=== PATIENT | female | born 1940 | race Caucasian/White ===

== ENCOUNTER → 2016-09-01 | Outpatient (CLI) | payer OTHER ==
[2016-09-01 13:26] LABS: BASO % 1.6 %; BASO ABS # 0.08 K/uL (0-0.2); COMPLETE YES; EOS % 5.6 %; HEMATOCRIT 36.6 % (37-47); IG% 0.6 %; LYMPH % 36.9 %; LYMPH ABS # 1.84 K/uL (1.2-3.4); MEAN CELL VOLUME 82.6 fL (80-100); MEAN CORPUSCULAR HEMOGLOBIN 27.1 pg (25-34); MEAN CORPUSCULAR HGB CONC 32.8 g/dl (32-36); NEUT % 48.3 %; PLATELET COUNT 239 K/uL (130-400); RED BLOOD COUNT 4.43 M/uL (4.2-5.4); WHITE BLOOD COUNT 4.99 K/uL (4.8-10.8)
[2016-09-01 13:31] LABS: BLOOD UREA NITROGEN 19 mg/dl (7-18); BUN/CREATININE RATIO 16.9 (10-20); CALCIUM 10.1 mg/dl (8.5-10.1); CARBON DIOXIDE 27 mmol/L (21-32); CHLORIDE 103 mmol/L (98-107); GLUCOSE 148 mg/dl (70-99); PHOSPHORUS 3.2 mg/dl (2.5-4.9); POTASSIUM 4.6 mmol/L (3.5-5.1); SODIUM 140 mmol/L (136-145)
[2016-09-01 13:35] LABS: ESTIMATED AVERAGE GLUCOSE 154 mg/dl; HA1C FLAG Normal (Normal)
== END | disposition home or self-care (01) ==
LOC: C.LABMFLN 08:35
PROVIDERS: ATTEND Family Medicine
DX: E11.9 Type 2 diabetes mellitus without complications (principal)

== ENCOUNTER → 2016-12-05 | Outpatient (CLI) | payer OTHER ==
[2016-12-05 14:11] LABS: ALT/SGPT 20 U/L (12-78); BLOOD UREA NITROGEN 20 mg/dl (7-18); CARBON DIOXIDE 27 mmol/L (21-32); CHLORIDE 104 mmol/L (98-107); CHOLESTEROL 146 mg/dl (0-200); GLUCOSE 209 mg/dl (70-99); POTASSIUM 4.7 mmol/L (3.5-5.1); SODIUM 139 mmol/L (136-145); TRIGLYCERIDES 233 mg/dl (0-150); VERY LOW DENSITY LIPOPROT CALC 47 mg/dl
[2016-12-05 14:14] LABS: ALB/GLOB RATIO 1.2 (0.9-2); ALKALINE PHOSPHATASE 73 U/L (45-117); AST/SGOT 13 U/L (15-37); CHOLESTEROL/HDL RATIO 2.7; HDL CHOLESTEROL 55 mg/dl; LDL CHOLESTEROL CALCULATED 44 mg/dl
[2016-12-05 14:17] LABS: CALCIUM 10.1 mg/dl (8.5-10.1); ESTIMATED AVERAGE GLUCOSE 151 mg/dl; HA1C FLAG Normal (Normal)
== END | disposition home or self-care (01) ==
LOC: C.LABMFLN 11:55
PROVIDERS: ATTEND Family Medicine
DX: E11.9 Type 2 diabetes mellitus without complications (principal); E78.5 Hyperlipidemia, unspecified

== ENCOUNTER → 2017-03-08 | Outpatient (CLI) | payer OTHER ==
[2017-03-08 14:35] LABS: BLOOD UREA NITROGEN 19 mg/dl (7-18); BUN/CREATININE RATIO 16.1 (10-20); CALCIUM 9.9 mg/dl (8.5-10.1); CARBON DIOXIDE 29 mmol/L (21-32); CHLORIDE 103 mmol/L (98-107); GLUCOSE 166 mg/dl (70-99); POTASSIUM 4.8 mmol/L (3.5-5.1); SODIUM 139 mmol/L (136-145)
[2017-03-08 14:36] LABS: PHOSPHORUS 3.7 mg/dl (2.5-4.9)
[2017-03-09 08:11] LABS: ESTIMATED AVERAGE GLUCOSE 148 mg/dl; HA1C FLAG Normal (Normal)
== END | disposition home or self-care (01) ==
LOC: C.LABMFLN 10:42
PROVIDERS: ATTEND Family Medicine
DX: E11.9 Type 2 diabetes mellitus without complications (principal)

== ENCOUNTER → 2017-06-20 | Outpatient (CLI) | payer OTHER ==
[2017-06-20 18:00] LABS: BASO % 0.9 %; BASO ABS # 0.05 K/uL (0-0.2); COMPLETE YES; EOS % 3.3 %; HEMATOCRIT 35.9 % (37-47); IG% 0.3 %; LYMPH % 32.3 %; LYMPH ABS # 1.85 K/uL (1.2-3.4); MEAN CELL VOLUME 86.1 fL (80-100); MEAN CORPUSCULAR HEMOGLOBIN 26.6 pg (25-34); MEAN CORPUSCULAR HGB CONC 30.9 g/dl (32-36); MONO % 8.4 %; NEUT % 54.8 %; PLATELET COUNT 238 K/uL (130-400); RED BLOOD COUNT 4.17 M/uL (4.2-5.4); WHITE BLOOD COUNT 5.72 K/uL (4.8-10.8)
[2017-06-20 18:14] LABS: BLOOD UREA NITROGEN 21 mg/dl (7-18); CARBON DIOXIDE 29 mmol/L (21-32); CHLORIDE 105 mmol/L (98-107); CREATININE 1.02 mg/dl (0.60-1.20); GLUCOSE 102 mg/dl (70-99); POTASSIUM 4.9 mmol/L (3.5-5.1); SODIUM 139 mmol/L (136-145)
[2017-06-21 06:29] LABS: ESTIMATED AVERAGE GLUCOSE 154 mg/dl; HA1C FLAG Normal (Normal)
== END | disposition home or self-care (01) ==
LOC: C.LABMFLN 10:53
PROVIDERS: ATTEND Family Medicine
DX: E11.9 Type 2 diabetes mellitus without complications (principal)

== ENCOUNTER → 2017-09-20 | Outpatient (CLI) | payer OTHER ==
[2017-09-20 12:56] LABS: BASO % 0.8 %; BASO ABS # 0.05 K/uL (0-0.2); EOS % 3.8 %; EOS ABS # 0.25 K/uL (0-0.5); HEMATOCRIT 38.7 % (37-47); HEMOGLOBIN 12.6 g/dL (12.0-16.0); IG# 0.02 K/uL (0.00-0.02); LYMPH % 29.9 %; LYMPH ABS # 1.95 K/uL (1.2-3.4); MEAN CELL VOLUME 85.4 fL (80-100); MEAN CORPUSCULAR HEMOGLOBIN 27.8 pg (25-34); MEAN CORPUSCULAR HGB CONC 32.6 g/dl (32-36); MEAN PLATELET VOLUME 9.1 fL (7.4-10.4); MONO % 6.9 %; MONO ABS # 0.45 K/uL (0.11-0.59); NEUT % 58.3 %; NEUT ABS # 3.81 K/uL (1.4-6.5); PLATELET COUNT 282 K/uL (130-400); RED CELL DISTRIBUTION WIDTH CV 14.3 % (11.5-14.5); RED CELL DISTRIBUTION WIDTH SD 44.6 fL (36.4-46.3); WHITE BLOOD COUNT 6.53 K/uL (4.8-10.8)
[2017-09-20 13:32] LABS: HEMOGLOBIN A1C 6.7 % (4.5-5.6)
[2017-09-20 14:03] LABS: ALBUMIN 3.6 gm/dl (3.4-5.0); BLOOD UREA NITROGEN 18 mg/dl (7-18); CALCIUM 11.6 mg/dl (8.5-10.1); CARBON DIOXIDE 28 mmol/L (21-32); CREATININE 1.17 mg/dl (0.60-1.20); GLUCOSE 197 mg/dl (70-99); PHOSPHORUS 1.6 mg/dl (2.5-4.9); SODIUM 136 mmol/L (136-145)
== END | disposition home or self-care (01) ==
LOC: C.LABMFLN 09:42
PROVIDERS: ATTEND Family Medicine
DX: E11.9 Type 2 diabetes mellitus without complications (principal); R82.90 Unspecified abnormal findings in urine; D64.9 Anemia, unspecified

== ENCOUNTER → 2017-09-27 | Outpatient (CLI) | payer OTHER ==
[2017-09-27 18:15] LABS: ALBUMIN 3.5 gm/dl (3.4-5.0); BLOOD UREA NITROGEN 21 mg/dl (7-18); CALCIUM 10.5 mg/dl (8.5-10.1); CARBON DIOXIDE 25 mmol/L (21-32); GLUCOSE 121 mg/dl (70-99); POTASSIUM 3.9 mmol/L (3.5-5.1); SODIUM 139 mmol/L (136-145)
[2017-09-27 18:16] LABS: PHOSPHORUS 2.5 mg/dl (2.5-4.9)
== END | disposition home or self-care (01) ==
LOC: C.LABMFLN 14:27
PROVIDERS: ATTEND Family Medicine
DX: E83.52 Hypercalcemia (principal)

== ENCOUNTER → 2017-11-02 | Outpatient (CLI) | payer OTHER | END | disposition home or self-care (01) | LOC: C.LABMFLN 11:49 | PROVIDERS: ATTEND Internal Medicine Nephrology | DX: E83.52 Hypercalcemia (principal); N18.3 Chronic kidney disease, stage 3 (moderate); E55.9 Vitamin D deficiency, unspecified ==

== ENCOUNTER → 2017-11-08 | Outpatient (CLI) | payer OTHER | END | disposition home or self-care (01) | LOC: C.LABMFLN 10:57 | PROVIDERS: ATTEND Family Medicine | DX: R19.7 Diarrhea, unspecified (principal) ==

== ENCOUNTER → 2017-12-07 | Outpatient (CLI) | payer OTHER ==
[2017-12-07 18:08] LABS: ALBUMIN 3.5 gm/dl (3.4-5.0); BLOOD UREA NITROGEN 20 mg/dl (7-18); CALCIUM 9.6 mg/dl (8.5-10.1); CARBON DIOXIDE 29 mmol/L (21-32); CREATININE 1.15 mg/dl (0.60-1.20); GLUCOSE 133 mg/dl (70-99); PHOSPHORUS 3.6 mg/dl (2.5-4.9); POTASSIUM 4.6 mmol/L (3.5-5.1); SODIUM 139 mmol/L (136-145)
== END | disposition home or self-care (01) ==
LOC: C.LABMFLN 11:01
PROVIDERS: ATTEND Internal Medicine Nephrology
DX: E83.52 Hypercalcemia (principal)

== ENCOUNTER → 2018-01-01 | Outpatient (CLI) | payer OTHER ==
[2018-01-01 13:27] LABS: HEMOGLOBIN A1C 6.9 % (4.5-5.6)
== END | disposition home or self-care (01) ==
LOC: C.LABMFLN 10:38
PROVIDERS: ATTEND Family Medicine
DX: R30.0 Dysuria (principal); R35.0 Frequency of micturition; E11.9 Type 2 diabetes mellitus without complications; Z86.2 Personal history of diseases of the blood and blood-forming organs and certain disorders involving the immune mechanism; E78.5 Hyperlipidemia, unspecified

== ENCOUNTER 2019-07-23 07:45 | Inpatient (IN) ==
--- NOTE | 2019-06-23 15:56 | PAT Medication Instructions ---
Medication Instructions Date of Service June 23, 2019 Home Medications Medication Instructions Recorded glipizide 5 mg tablet 5 mg PO .COMPLEX #270 tab 02/10/19 blood sugar diagnostic strips #300 ea 02/12/19 atorvastatin 40 mg tablet 40 mg PO QPM #90 tab 03/17/19 insulin glargine (U-100) 100 See Rx Instructions SUBCUT 03/17/19 unit/mL (3 mL) subcutaneous pen .COMPLEX #15 syr tramadol 50 mg tablet 50 mg PO QID PRN #60 tab 05/15/19 Microlet lancets #200 ea 06/16/19 glipizide 5 mg tablet 5 mg PO .COMPLEX #270 tab 02/10/19 [Rx Confirmed 06/17/19] atorvastatin 40 mg tablet 40 mg PO QPM #90 tab 03/17/19 [Rx Confirmed 06/17/19] cranberry 300 mg PO DAILY 03/17/19 [History Confirmed 06/17/19] insulin glargine (U-100) 100 unit/mL (3 mL) subcutaneous pen See Rx Instructions magnesium 250 mg tablet 250 mg PO BID 03/17/19 [History Confirmed 06/17/19] multivitamin tablet 1 tab PO QAM 03/17/19 [History Confirmed 06/17/19] coenzyme Q10 100 mg capsule 200 mg PO DAILY cap 03/20/19 [History Confirmed 06/17/19] cyanocobalamin (vit B-12) 2,500 mcg sublingual tablet 2,500 mcg SL DAILY tramadol 50 mg tablet 50 mg PO QID PRN ascorbic acid (vitamin C) [Vitamin C] 500 mg PO DAILY 06/17/19 [History Confirmed 06/17/19] carboxymethylcellulose sodium [Artificial Tears (cmc)] 1 drp OPHTHALMIC (EYE) BID PRN cetirizine [Zyrtec] 10 mg PO DAILY PRN gabapentin 200 mg PO HS 06/17/19 [History Confirmed 06/17/19] latanoprost 1 drp OPB PM 06/17/19 [History Confirmed 06/17/19] losartan 50 mg PO QPM 06/17/19 [History Confirmed 06/17/19] omeprazole 40 mg PO DAILY psyllium husk [Metamucil] 1 tsp PO QPM 06/17/19 [History Confirmed 06/17/19] vit C,Q-Th-upumq-lutein-zeaxan [PreserVision AREDS-2] 1 tab PO BID STOP taking 2 weeks before surgery (or as soon as possible if surgery is within 2 weeks) cranberry 300 mg PO DAILY 03/17/19 [History Confirmed 06/17/19] coenzyme Q10 100 mg capsule 200 mg PO DAILY cap 03/20/19 [History Confirmed 06/17/19] vit C,I-Vz-sgqij-lutein-zeaxan [PreserVision AREDS-2] 1 tab PO BID DO NOT take the morning of surgery glipizide 5 mg tablet 5 mg PO .COMPLEX #270 tab 02/10/19 [Rx Confirmed 06/17/19] magnesium 250 mg tablet 250 mg PO BID 03/17/19 [History Confirmed 06/17/19] multivitamin tablet 1 tab PO QAM 03/17/19 [History Confirmed 06/17/19] cyanocobalamin (vit B-12) 2,500 mcg sublingual tablet 2,500 mcg SL DAILY ascorbic acid (vitamin C) [Vitamin C] 500 mg PO DAILY 06/17/19 [History Confirmed 06/17/19] cetirizine [Zyrtec] 10 mg PO DAILY PRN Take morning of surgery With a small sip of water, OTHERWISE NOTHING TO EAT OR DRINK AFTER MIDNIGHT: tramadol 50 mg tablet 50 mg PO QID PRN (okay to take up to 4 hours prior to surgery if needed) carboxymethylcellulose sodium [Artificial Tears (cmc)] 1 drp OPHTHALMIC (EYE) BID PRN (if needed) cetirizine [Zyrtec] 10 mg PO DAILY PRN (if needed) omeprazole 40 mg PO DAILY Take evening before surgery glipizide 5 mg tablet 5 mg PO .COMPLEX #270 tab 02/10/19 [Rx Confirmed 06/17/19] atorvastatin 40 mg tablet 40 mg PO QPM #90 tab 03/17/19 [Rx Confirmed 06/17/19] insulin glargine (U-100) 100 unit/mL (3 mL) subcutaneous pen See Rx Instructions magnesium 250 mg tablet 250 mg PO BID 03/17/19 [History Confirmed 06/17/19] tramadol 50 mg tablet 50 mg PO QID PRN (if needed) carboxymethylcellulose sodium [Artificial Tears (cmc)] 1 drp OPHTHALMIC (EYE) BID PRN (if needed) cetirizine [Zyrtec] 10 mg PO DAILY PRN (if needed) gabapentin 200 mg PO HS 06/17/19 [History Confirmed 06/17/19] latanoprost 1 drp OPB PM 06/17/19 [History Confirmed 06/17/19] losartan 50 mg PO QPM 06/17/19 [History Confirmed 06/17/19] psyllium husk [Metamucil] 1 tsp PO QPM 06/17/19 [History Confirmed 06/17/19] Insulin Dependent Diabetic Patients * Test your blood sugar the morning of surgery * If Blood Sugar is GREATER THAN 150, take HALF of your regular dose of: insulin glargine (U-100) 100 unit/mL (3 mL) subcutaneous pen (take 12.5 units) * If Blood Sugar is LESS THAN 150, DO NOT TAKE ANY: insulin glargine (U-100) 100 unit/mL (3 mL) subcutaneous pen Other Notes If you have any questions please call us at [phone] or [phone] or [phone] or [phone]
--- NOTE | 2019-06-24 12:49 | Anesthesiology Consultation ---
Date of Service June 24, 2019 Assessment & Plan (1) Encounter for pre-operative examination: - Awaiting review preop testing (labs, EKG, CXR). - Awaiting surgeon-ordered PCP preop evaluation scheduled 07/01 ([facility]). - Check BSG AM DOS Chart Review Chart Review: Patient seen in Pre Admission Testing Teaching & Discussion Pre-Anesthesia Teaching/Discussion Notes: Instructed NPO after midnight before surgery,except medications with 15 cc of water. Medication instructions provided according to the PAT guidelines. History Surgery Operation Date: 07/23/19 09:10 Proposed Procedures p Right Total Knee Arthroplasty - Navdeep Natarajan MD Height/Weight Height: 5 ft 4 in Weight: 91.9 kg Allergies Allergy/AdvReac Type Severity Reaction Status Date / Time Penicillins Allergy Intermediate HIVES Verified 06/17/19 13:23 hydrocodone Allergy Mild LIPS Verified 06/24/19 12:54 SWELLING CONTRASTMEDIA Allergy Intermediate IODINE DYE Uncoded 06/17/19 13:23 SWELLING Medications Home Medications Medication Instructions Recorded Confirmed Last Taken glipizide 5 mg tablet 5 mg PO .COMPLEX #270 tab 02/10/19 06/17/19 Unknown blood sugar diagnostic #300 ea 02/12/19 03/24/19 Unknown atorvastatin 40 mg tablet 40 mg PO QPM #90 tab 03/17/19 06/17/19 Unknown cranberry 300 mg PO DAILY 03/17/19 06/17/19 Unknown insulin glargine 100 unit/mL (3 See Rx Instructions SUBCUT 03/17/19 06/17/19 U nknown mL) subcutaneous pen .COMPLEX #15 syr magnesium 250 mg tablet 250 mg PO BID 03/17/19 06/17/19 Unknown multivitamin 1 tab PO QAM 03/17/19 06/17/19 Unknown coenzyme Q10 100 mg capsule 200 mg PO DAILY cap 03/20/19 06/17/19 Unknown cyanocobalamin (vitamin B-12) 2,500 mcg SL DAILY tab 03/20/19 06/17/19 Unknown 2,500 mcg sublingual tablet tramadol 50 mg tablet 50 mg PO QID PRN #60 tab 05/15/19 06/17/19 Unknown lancets #200 ea 06/16/19 Unknown ascorbic acid (vitamin C) [Vitamin 500 mg PO DAILY 06/17/19 06/17/19 Unknown C] carboxymethylcellulose sodium 1 drp OPHTHALMIC (EYE) BID PRN 06/17/19 06/17/19 Unknown [Artificial Tears (cmc)] cetirizine [Zyrtec] 10 mg PO DAILY PRN 06/17/19 06/17/19 Unknown gabapentin 200 mg PO HS 06/17/19 06/17/19 Unknown latanoprost 1 drp OPB PM 06/17/19 06/17/19 Unknown losartan 50 mg PO QPM 06/17/19 06/17/19 Unknown omeprazole 40 mg PO DAILY PRN 06/17/19 06/17/19 Unknown psyllium husk [Metamucil] 1 tsp PO QPM 06/17/19 06/17/19 Unknown vit C,V-Nv-odkke-lutein-zeaxan 1 tab PO BID 06/17/19 06/17/19 Unknown [PreserVision AREDS-2] Past Medical History Medical History (Updated 06/24/19 @ 13:04 by Kathie Guadarrama) Asthma childhood CKD (chronic kidney disease), stage III Colon cancer colon polyp + for cancer/no chemo or XRT Degenerative disc disease Diabetes mellitus, type 2 IDDM Diabetic peripheral neuropathy Dry eye syndrome Esophageal reflux controlled Esophageal stricture s/p dilation Glaucoma Hiatal hernia History of diverticulitis s/p colon resection Hyperlipidemia Macular degeneration Obesity Osteoarthritis Solitary pulmonary nodule under surveillance Squamous cell carcinoma of scalp Exercise / Class Metabolic Activity III < 4 Walking/Shop/Light housework Past Family History Family History Sister Family history of diabetes mellitus Family hx of colon cancer Father Family hx of colon cancer Past Surgical History Surgical History (Updated 06/24/19 @ 12:56 by Ktahie Guadarrama) H/O total hysterectomy History of appendectomy History of arthroscopy LEFT KNEE History of esophagogastroduodenoscopy (EGD) History of tonsillectomy and adenoidectomy History of tooth extraction History of total knee replacement LEFT S/P cholecystectomy S/P colon resection S/P colonoscopy Past Anesthesia History No Hx of Anesthesia Complications and No Family Hx of Anesthesia Complications History of PONV No Hx of PONV and No Hx of Motion Sickness Social History Smoking Status: Former smoker tobacco type: cigarettes Do You Dip or Chew Tobacco: No Smoking End Date: 1976 Hx Alcohol Use: Yes Alcohol type: wine alcohol intake frequency: holidays/special occasions only Hx Substance Use: No substance use type: does not use Review of Systems Reflux controlled. Patient denies chest pain, shortness of breath, cough, wheezing, palpitations. Physical Exam Vital Signs VITALS BP 134/82 P 95 TEMP 98.8 SP02 93%RA RESP 16 PHYSICAL Full neck and c-spine range of motion. Full TMJ range of motion. TMD 3 finger breaths Mallampati Score 3 Dentition: upper full denture Lungs: clear throughout to auscultation Cardiac: regular rate and rhythm, no murmurs noted Spine: normal Carotid arteries: negative bruit Extremities: no edema
--- NOTE | 2019-06-24 13:48 | XRay Report ---
XR chest Pre-admission PA/Lat CLINICAL HISTORY: Preoperative chest COMPARISON STUDY: No previous studies for comparison. FINDINGS: The cardiac and mediastinal contours are normal. There is no evidence of focal pulmonary co nsolidation. There is no evidence of failure. No pleural effusions are visualized.[There is a promine nt left cardiophrenic angle fat pad. Degenerative changes are present within the dorsal spine. IMPRESSION: No active disease in the chest. Electronically signed by: Bradley Cota M.D. 06/24/2019 1:46 PM
[2019-06-24 14:25] LABS: Albumin Level 3.4 gm/dl (3.4-5.0); BUN Creatinine Ratio 17.9 (10-20); Calcium 10.4 mg/dl (8.5-10.1); Creatinine Clr Calc Pharmacy 40.7 ml/min; Est GFR (African American) 48.9; Est GFR (Non-African American) 42.2; Potassium 4.6 mmol/L (3.5-5.1)
[2019-06-24 14:31] LABS: Partial Thromboplastin Ratio 0.9; Partial Thromboplastin Time 24.7 Seconds (21.0-31.0); Prothrombin Time 9.8 Seconds (9.0-12.0)
[2019-06-24 14:33] LABS: Basophils # (auto) 0.06 K/uL (0-0.2); Eosinophils # (auto) 0.14 K/uL (0-0.5); Eosinophils % (auto) 2.3 %; Hematocrit (blood only) 36.9 % (37-47); Immature Granulocytes # (auto) 0.04 K/uL (0.00-0.02); Immature Granulocytes % (auto) 0.6 %; Lymphocytes # (auto) 1.67 K/uL (1.2-3.4); Lymphocytes % (auto) 26.9 %; Mean Corpuscular Hemoglobin 28.2 pg (25-34); Mean Corpuscular Hgb Conc 32.5 g/dL (32-36); Mean Corpuscular Volume 86.6 fL (80-100); Mean Platelet Volume 8.5 fL (7.4-10.4); Monocytes # (auto) 0.45 K/uL (0.11-0.59); Monocytes % (auto) 7.3 %; Neutrophils # (auto) 3.84 K/uL (1.4-6.5); Neutrophils % (auto) 61.9 %; Platelet Count 249 K/uL (130-400); RDW Coefficient of Variation 14.3 % (11.5-14.5); RDW Standard Deviation 44.8 fL (36.4-46.3); Red Blood Count 4.26 M/uL (4.2-5.4)
[2019-06-24 14:58] LABS: Estimated Average Glucose 169 mg/dl; Hemoglobin A1C 7.5 % (4.5-5.6)
--- NOTE | 2019-07-22 19:36 | History and Physical Report ---
DATE OF ADMISSION: 07/23/2019 CHIEF COMPLAINT: Chronic right knee pain. HISTORY OF PRESENT ILLNESS: This is an 78-year-old female patient of Dr. Natarajan'joy complaining of chronic right knee pain and instability, longstanding, now progressively getting worse. The patient has failed conservative treatment including intraarticular injections, tramadol, anti-inflammatories, use of a wrap and a brace. The patient has increased pain with weightbearing activities and her pain does interfere with her activities of daily living. The patient has been diagnosed with end-stage osteoarthritis per clinical and radiographic exams. The patient wished to proceed with a right total knee arthroplasty. PAST MEDICAL HISTORY: Hypertension, hypercholesterolemia, peripheral neuropathy, diabetes mellitus with insulin, osteoarthritis, acid reflux, hiatal hernia, obesity, kidney stones and a history of cancer, unspecified. SOCIAL HISTORY: Nonsmoker, nondrinker. PAST SURGICAL HISTORY: Left total knee arthroplasty, tonsillectomy, cholecystectomy, hysterectomy, foot surgery, colon resection, kidney stone removal, cataracts, carpal tunnel. ALLERGIES: PENICILLIN WHICH CAUSES HIVES; VICODIN, WHICH CAUSES LIPS SWELLING AND IV DYE, WHICH CAUSES LIPS SWELLING. REVIEW OF SYSTEMS: The patient complains of chronic right knee pain and instability. Otherwise, denies any shortness of breath, chest pain, nausea, vomiting or other joint complaints. FAMILY HISTORY: Noncontributory. MEDICATIONS: 1. Glipizide 5 mg 3 times daily. 2. Lantus insulin 25 units in the a.m., 18 units in the p.m. 3. Atorvastatin 40 mg daily. 4. Losartan 50 mg daily. 5. Tramadol 50 mg twice daily. 6. Omeprazole 20 mg daily. 7. Latanoprost eye drops 0.005% to the affected eye daily as needed. 8. Vitamin B12. 9. CoQ10 10. Vitamin C. 11. PreserVision. 12. Magnesium oxide. 13. Metamucil. 14. Artificial tears. 15. Zyrtec 10 mg daily. 16. Cranberry daily. 17. Biotin daily. PHYSICAL EXAMINATION: GENERAL: Well-developed, well-nourished 78-year-old female in no acute distress. She is alert and oriented x3 and pleasant. HEENT: Normocephalic, atraumatic. Extraocular motions are intact. Pupils are equal and reactive to light. HEART: Regular rate and rhythm, no murmurs. LUNGS: Clear. ABDOMEN: Soft, nontender, bowel sounds present. EXTREMITIES: Right knee limited range of motion of 0-115, valgus, lateral joint line tenderness, crepitation, 5/5 strength. Neurologically and neurovascularly, she is intact in her right lower extremity. DIAGNOSES: Right knee end-stage osteoarthritis, hypertension, hypercholesterolemia, peripheral neuropathy, diabetes mellitus with insulin, osteoarthritis, sciatica, acid reflux, hiatal hernia, obesity, kidney stones, history of unspecified cancer. PLAN: The patient was advised of her diagnosis. Indications, risks, benefits, postop course have all been reviewed. The patient wishes to proceed with a right total knee arthroplasty. Necessary consent forms, preoperative testing and clearances will be obtained.
[~2019-07-23 07:45] MED LIST: ACETAMINOPHEN 500 MG TAB PO SCH; CeleBREX 200 MG CAP PO SCH; FAMOTIDINE 20 MG TAB PO SCH; GABAPENTIN 300 MG CAP PO SCH; METOCLOPRAMIDE HCL 10 MG TABLET PO SCH; ROPIVACAINE 0.5% HCL/PF 150 MG, BUPIVACAINE 0.5% MPF 30 ML, EPINEPHrine 30MG/30ML (OR U... INFIL SCH; TRANEXAMIC ACID 1,000 MG **IV Intra-op IV SCH; TRANEXAMIC ACID 1,000 MG **IV Pre-op IV SCH; VANCOMYCIN HCL 1,500 MG in SODIUM CHLORIDE 0.9% 500 ML IV SCH; dexAMETHasone 4 MG TAB PO SCH
[2019-07-23] MEDS ORDERED: BUPIVACAINE 0.5 % 5 MG/1 ML PF 10ML VIAL ONE (07:57)
[2019-07-23] MEDS ORDERED: ROPIVACAINE 0.5% 5 MG/ML 30 ML VIAL ONE (07:58)
[2019-07-23] MEDS ORDERED: EPINEPHrine INJ 1 MG/ML AMP ONE (07:58)
--- NOTE | 2019-07-23 08:51 | History & Physical Bridge Note ---
Date of Service July 23, 2019 History & Physical Bridge Note I have examined the patient, reviewed the History & Physical and in the interval since the performance of the History & Physical I have noted the following changes of clinical significance: no changes noted
[2019-07-23] MEDS ORDERED: ORTHO JOINT ANESTHETIC ONE (09:08)
[2019-07-23] MEDS ORDERED: BACITRACIN INJ 50,000 UNIT VIAL ONE (09:08)
[2019-07-23] MEDS ORDERED: fentaNYL citrate 100 MCG/2 ML VIAL ONE (10:03)
[2019-07-23] MEDS ORDERED: MIDAZOLAM HCL 1 MG/ML 2ML VIAL ONE (10:03)
[2019-07-23] MEDS ORDERED: LABETALOL HCL IV 5 MG/ML 20ML IV PRN (10:10)
[2019-07-23] MEDS ORDERED: ePHEDrine sulfate 50 MG/ML AMP IV PRN (10:10)
[2019-07-23] MEDS ORDERED: fentaNYL citrate 100 MCG/2 ML VIAL IV PRN (10:10)
[2019-07-23] MEDS ORDERED: MEPERIDINE HCL 25 MG/ML CARP IV PRN (10:10)
[2019-07-23] MEDS ORDERED: ATROPINE SULFATE 0.1 MG/ML 10ML SYR IV PRN (10:10)
[2019-07-23] MEDS ORDERED: ONDANSETRON INJ 2 MG/ML 2 ML VIAL IV PRN ×2 (10:10→14:23)
[2019-07-23] MEDS ORDERED: PHENYLEPHRINE 100MCG/ML 5ML SYR IV PRN (10:10)
[2019-07-23] MEDS ORDERED: LACTATED RINGER'S 1,000 ML IV SCH (10:53)
[2019-07-23] MEDS ORDERED: PROPOFOL IV EMULSION 10 MG/ML 20 ML VIAL IV ONE ×2 (11:47)
--- NOTE | 2019-07-23 12:37 | Post Operative Brief Note ---
Immediate Post Op Note v1 Date of Surgery July 23, 2019 Pre & Post Diagnosis Operation Date: 07/23/19 10:40 Pre-Op Diagnosis: RIGHT KNEE OSTEOARTHRITIS Post-Op Diagnosis: RIGHT KNEE OSTEOARTHRITIS I identified the patient and participated in the time-out.: Yes Procedure Operation Date: 07/23/19 10:40 Actual Procedures p Right Total Knee Arthroplasty - Navdeep Natarajan MD Surgeon Navdeep Natarajan MD Derrick Follower GISSELL Chin Estimated Blood Loss 5 Findings Consistent with Post-Op Diagnosis Specimens Bone cuts Drains Hemovac Drain Anesthesia Type MAC Spinal Regional Complications none Disposition Accompanied Patient To Recovery: No Disposition: Recovery Room Overlapping Procedure I was present for: the critical portions of procedure. Back up surgeon: was not required during procedure.
[2019-07-23] MEDS ORDERED: ONDANSETRON INJ 2 MG/ML 2 ML VIAL ONE (13:07)
--- NOTE | 2019-07-23 13:48 | Anesthesiology Progress Note ---
Date of Service July 23, 2019 Anesthesia Post Procedure Vital Signs Vital Signs: Temp Pulse Pulse Resp BP Pulse Ox 07/23/19 13:40 74 13 121/66 99 07/23/19 13:30 74 14 124/64 99 07/23/19 13:20 81 14 131/64 100 07/23/19 13:11 36.4 C L 93 H 17 111/61 100 07/23/19 08:20 37 C 92 H 18 145/80 H 97 Transfer of Care Handoff Completed per policy Notes Mental Status: alert / awake / arousable Patient Amnestic to Procedure: Yes Nausea / Vomiting: adequately controlled Pain: adequately controlled Airway Patency, RR, SpO2: stable & adequate BP & HR: stable & adequate Hydration State: stable & adequate Neuraxial Anesthesia: was administered and sensory block is resolving Anesthetic Complications: no major complications apparent and Pt Satisfied with anesthetic care
--- NOTE | 2019-07-23 14:15 | XRay Report ---
XR knee RT 1 or 2V routine CLINICAL HISTORY: Surgical Post Op COMPARISON: None. DISCUSSION: There are postsurgical changes of a total right knee arthroplasty and patellar resurfacin g. The views are slightly obliqued. The femoral and tibial components appear well seated as visualize d. There are overlying skin gerardo and surgical drains. There is air in the soft tissues consistent with recent surgery. IMPRESSION: Postsurgical changes of a total right knee arthroplasty. Electronically signed by: Bradley Cota M.D. 07/23/2019 2:13 PM
[2019-07-23] MEDS ORDERED: ARTIFICIAL TEARS OP OINT 3.5 GM TUBE OP PRN (14:23)
[2019-07-23] MEDS ORDERED: VANCOMYCIN HCL 1,250 MG in SODIUM CHLORIDE 0.9% 250 ML IV SCH (14:23)
[2019-07-23] MEDS ORDERED: PANTOprazole 40 MG TAB PO PRN (14:23)
[2019-07-23] MEDS ORDERED: CETIRIZINE HCL 10 MG TABLET PO PRN (14:23)
[2019-07-23] MEDS ORDERED: NALOXONE HCL 0.4 MG/1 ML VIAL/CARP IV PRN (14:23)
[2019-07-23] MEDS ORDERED: VANCOMYCIN CONSULT ACTIVE PRN (14:23)
[2019-07-23] MEDS ORDERED: MAGNESIUM HYDROXIDE SUSP 30 ML UDC PO PRN (14:23)
[2019-07-23] MEDS ORDERED: bisacodyL 10 MG SUPP PR PRN (14:23)
[2019-07-23] MEDS ORDERED: HYDROmorphone INJ 0.5 MG/0.5 ML SYR IV PRN (14:23)
[2019-07-23] MEDS ORDERED: PHARMACY GLYCEMIC MGMT CONSULT PRN (14:41)
[2019-07-23] MEDS: SODIUM CHLORIDE 0.9% 1000ML 1,000 ML IV SCH (14:51)
--- NOTE | 2019-07-23 15:23 | Pharmacy Report ---
Glycemic Control Consultation - Date of Service July 23, 2019 - Scope Scope: Glycemic Pharmacist consulted by Bryce Velazquez PA-C on 07/23/19 for glycemic control and to write orders per formerly [facility] inpatient glycemic control protocol - Objective Weight: 88.451 kg Accuchecks BSG (last 24hrs): 07/23/19 07/23/19 08:19 13:21 POC Glucose 126 H 141 H HbA1c: Hemoglobin A1c 7.5 % (4.5-5.6) H 06/24/19 13:05 - Recent Pertinent Medications Outpatient Anti-diabetic Regimen: * Glipizide 10 mg PO QAM , 5 mg PO QPM * Lantus 25 units SQ QAM, 18 units SQ QPM (patient took dose last night) * A1c = 7.5 % on 06/24/19 Risk Factors for Insulin Resistance: * Steroids: Dexamethasone 8 mg PO preop x 1 dose * Infection: Vancomycin IV x 1 dose postop * IVF: NS @ 100 ml/hr * Recent Surgery: R TKA - POD #1 * Diet: T2DM - Assessment & Plan Assessment & Plan: ASSESSMENT: * 78 F with T2DM admitted for R TKA today. 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 * Oral agents are not recommended for inpatient use d/t drug interactions, changing PO intake, and difficulty titrating for acute hyper/hypoglycemia. * Will hold oral agents for admission and utilize SQ basal bolus insulin regimen which is the recommended regimen for inpatient glycemic control. Will initiate weight based insulin dosing and titrate based on BSG trends. * Spoke to patient today. She said her last dose of Lantus was 18 units last night at 7 pm. * She received Dexamethasone 8 mg PO preop x1 today in the OR. Steroids are known to cause hyperglycemia. * Lantus dose for now ordered based on skipped morning dose + slightly extra to cover for the steroid hyperglycemia. Also ordered HS Lantus based on scale in case of persistent hyperglycemia. * Novolog with meals ordered based on wt and stress factor of 3 since steroid dose was given this AM. PLAN FOR INPATIENT GLYCEMIC CONTROL: * Holding outpatient oral diabetes medications * Basal insulin * Lantus 30 units SQ at 1530 * Lantus HS based on scale as follows: - if BSG less than 160 - give 0 units - if BSG 160 or above - give 8 units * Bolus insulin * NovoLog per scale ACHS or Q6hrs while NPO + with 00 & 04 checks. * Goal Range: Low 120 mg/dL - High 150 mg/dL * Correction Factor: 20 mg/dL/unit * Nutritional / Prandial insulin per carb ratio of 1 unit per 7 grams CHO consumed * Please note that the plan above was derived based on current level of insulin resistance and hospital stress. These recommendations are appropriate for inpatient admission only. Plan of care upon discharge will need to be reassessed to avoid potential outpatient hypo/hyperglycemia. Thank you.
[2019-07-23] MEDS ORDERED: INSULIN GLARGINE SOLOSTAR 100 UNITS/ML 3 ML PEN SC ONE ×2 (15:30→21:00)
--- NOTE | 2019-07-23 15:44 | Hospitalist Consultation ---
Date of Consultation July 23, 2019 Assessment & Plan (1) Post-operative state: s/p right TKA 07/23 monitor for acute blood loss Pain control, dvt proph per primary (2) Hyperlipidemia: continue atorvastatin (3) Diabetes mellitus: type II consult glycemic pharmacist (4) Diabetic peripheral neuropathy: continue home gabapentin (5) CKD (chronic kidney disease), stage III: avoid nephrotoxins where possible (6) Benign essential hypertension: hold losartan post op day 1 to avoid hypotension prp am Supervising Physician Co-Signing Physician Notes I supervised Shital Mullins NP on this patient's care. I examined the patient today independently of her. I discussed the plan of care with her with the plan being as written in her note except for any following changes/exceptions: None. History of Present Illness Attending Physician: Navdeep Natarajan MD History of Present Illness Ms. Acevedo is post total knee today. She has no complaints, denies sob, chest pain, nausea, vomiting or pain at the surgical site. Pmhx: htn, hld, neuropathy, DMII, GERD Social: smoked for 20 years 1.5 ppd and quit 42 years ago, very occasional alcohol, Family: non contributory Allergies Allergy/AdvReac Type Severity Reaction Status Date / Time Iodinated Contrast Media Allergy Intermediate Swelling Verified 07/23/19 08:28 Penicillins Allergy Intermediate HIVES Verified 07/23/19 08:28 hydrocodone Allergy Mild LIPS Verified 07/23/19 08:28 SWELLING Home Medications Home Medications Medication Instructions Recorded Confirmed Type glipizide 5 mg tablet 5 mg PO .COMPLEX #270 tab 02/10/19 07/23/19 Rx blood sugar diagnostic #300 ea 02/12/19 07/23/19 Rx atorvastatin 40 mg tablet 40 mg PO QPM #90 tab 03/17/19 07/23/19 Rx cranberry 300 mg PO DAILY 03/17/19 07/23/19 History insulin glargine 100 unit/mL (3 See Rx Instructions SUBCUT 03/17/19 07/23/19 Rx mL) subcutaneous pen .COMPLEX #15 syr magnesium 250 mg tablet 250 mg PO BID 03/17/19 07/23/19 History multivitamin 1 tab PO QAM 03/17/19 07/23/19 History coenzyme Q10 100 mg capsule 200 mg PO DAILY cap 03/20/19 07/23/19 History cyanocobalamin (vitamin B-12) 2,500 mcg SL DAILY tab 03/20/19 07/23/19 History 2,500 mcg sublingual tablet lancets #200 ea 06/16/19 07/23/19 Rx ascorbic acid (vitamin C) [Vitamin 500 mg PO DAILY 06/17/19 07/23/19 History C] carboxymethylcellulose sodium 1 drp OPHTHALMIC (EYE) BID PRN 06/17/19 07/23/19 History [Artificial Tears (cmc)] cetirizine [Zyrtec] 10 mg PO DAILY PRN 06/17/19 07/23/19 History latanoprost 1 drp OPB PM 06/17/19 07/23/19 History losartan 50 mg PO QPM 06/17/19 07/23/19 History omeprazole 40 mg PO DAILY PRN 06/17/19 07/23/19 History psyllium husk [Metamucil] 1 tsp PO QPM 06/17/19 07/23/19 History vit C,G-Zg-oaian-lutein-zeaxan 1 tab PO BID 06/17/19 07/23/19 History [PreserVision AREDS-2] calcitriol 0.25 mcg capsule 0.25 mcg PO .COMPLEX 06/26/19 07/23/19 History gabapentin 100 mg capsule 100 mg PO BID #60 cap 07/01/19 07/23/19 Rx tramadol 50 mg tablet 50 mg PO QID PRN #60 tab 07/01/19 07/23/19 Rx Patient History Family History Sister Family history of diabetes mellitus Family hx of colon cancer Father Family hx of colon cancer Social History Preferred Language: Belgian Communication Ability: Effective Visual Impairment: Partially Limited Hearing Ability: Use of Hearing Aid Repair Specialist Required: No Beliefs That Will Affect Care: None marital status: Current Living Situation: Spouse current occupational status: retired Other Information That Helps Us Care for You: No Feels Safe at Home: Yes Safety Concerns: Feels Safe At This Time Smoking Status: Former smoker Tobacco Type: cigarettes ; Age Started Using Tobacco: 16 ; Age Quit Using Tobacco: 36 ; packs per day: 1.5 ; Do You Dip or Chew Tobacco: No ; Smoking End Date: Quit 1976 ; Second Hand Exposure: No ; Tobacco Cessation Education Requested by Patient: No Hx Alcohol Use: Yes Alcohol type: wine Alcohol Intake Frequency: Holidays/Special Occasions Hx Substance Use: No Childhood Exposure to Second-Hand Smoke: Yes caffeine: Yes (1 cup coffee in am, green tea during day) Dental Care, Regularly: Yes Physical Activity Frequency: Does not Exercise Seatbelt Use: always Sunscreen Use: No Do you think of yourself as: straight/heterosexual Review of Systems Review of Systems: All systems reviewed & are unremarkable except as noted in HPI & below Physical Exam Physical Exam: General: no distress Eyes: normal inspection, PERLL Respiratory: chest non tender, clear to auscultation, normal breath sounds, no respiratory distress, no accessory muscle use Cardiac: regular rate and rhythm, no rub or gallop, no murmur, no edema, no jvd GI/: active bowel sounds, no abd pain or tenderness, soft, non distended Extremities: normal range of motion, normal strength, non tender Neuro/Psych: alert and oriented x 3, normal mood and affect Skin: normal color, dry Results & Data Vital Signs (Past 12 Hours) Vital Signs Temp Pulse Pulse Pulse Resp BP Pulse Ox 07/23/19 15:12 36.7 C 18 128/81 97 07/23/19 14:43 85 18 137/83 97 07/23/19 14:05 37 C 70 16 120/78 94 07/23/19 13:50 37.2 C 77 14 126/69 99 07/23/19 13:40 74 13 121/66 99 07/23/19 13:30 74 14 124/64 99 07/23/19 13:20 81 14 131/64 100 07/23/19 13:11 36.4 C L 93 H 17 111/61 100 07/23/19 08:20 37 C 92 H 18 145/80 H 97 PG Care Time/CCT Total # of Minutes Spent Total Time Spent with Patient: Total time spent is greater than 50% in coordina tion of care (as documented) at patient's floor/unit and/or counseling patient:
[2019-07-23] MEDS ORDERED: PHARMACY GLYCEMIC MGMT CONSULT STA (15:48)
[2019-07-23] MEDS: OXYCODONE HCL IR 5 MG TAB (IMMEDIATE RELEASE) PO PRN ×2 (16:41→20:43)
[2019-07-23] MEDS: INSULIN ASPART 100 UNITS/ML 3 ML PEN SC SCH ×2 (17:57→20:52)
--- NOTE | 2019-07-23 18:05 | Operative Report ---
Post Operative Report Pre & Post Diagnosis Operation Date: 07/23/19 10:40 Pre-Op Diagnosis: RIGHT KNEE OSTEOARTHRITIS Post-Op Diagnosis: RIGHT KNEE OSTEOARTHRITIS I identified the patient and participated in the time-out.: Yes Procedure Operation Date: 07/23/19 10:40 Actual Procedures p Right Total Knee Arthroplasty - Navdeep Natarajan MD Surgeon Navdeep Natarajan MD Speech Lang Path Therapist GISSELL Chin Estimated Blood Loss 5 Findings Consistent with Post-Op Diagnosis Specimens Bone cuts Anesthesia Type MAC Spinal Regional Complications none Disposition Accompanied Patient To Recovery: No Disposition: Recovery Room Indications 78-year-old female with progressive right knee osteoarthritis. She now has a flexion contracture and severe pain and progressive osteoarthritis with [id number] in her knee. She is [id number] medial and lateral compartment and patellofemoral joint with severe tricompartmental DJD. Patient had prior left knee replacement years ago which is doing well. Description of Procedure Patient taken to the operating room the size under spinal MAC regional anesthesia. Patient was placed supine on the operating table. A pneumatic gregoria rniquet was placed about the obese right upper thigh. The right lower extremity was prepped and draped in sterile fashion. Knee exam demonstrated 15 degree flexion contracture flexion only to 90 degrees with very stiff knee.. The leg was elevated exsanguinated with an Esmarch bandage and pneumatic tourniquet was raised to 325 millimeters of mercury. Skin incised sharply in longitudinal fashion. Subcutaneous flaps elevated. Incision was made through the medial retinaculum extending up in the mid third of the quadriceps tendon and down to the medial tibial tubercle. Intra-articular findings demonstrated severe tricompartmental DJD [id number] in all compartments chronic ACL tear notch stenosis large osteophytes. The [employer] V[employer]ard posterior stabilized total knee arthroplasty system was used. To expose the knee the infrapatellar fat pad was resected. The meniscal remnants and posterior cruciate ligament were resected. The anterior fat pad over the femur in the area of the anterior flange of the femoral component was resected. Lateral synovial bands release. The femur was exposed. Notch osteophytes were resected. An intramedullary drill hole was made into the canal. A guide alexi was placed. Distal femoral cutting guide was adjusted to resect a 5 degree valgus cut with 11 millimeters distal femur resected. The knee was extended and a subperiosteal peel lateral release was performed around the patella. Patella width was measured and width was reproduced using a freehand cut technique and a 34 x 8 symmetrical patella component. The 3 drill holes were made and the excess lateral facet was beveled off to prevent any impingement. Attention was taken back to the femur which was exposed with retractors and the femoral sizing guide was pinned in position. The drill holes were placed in 3 of external rotation to match epicondylar axis. Femur sized for a 65 right component. The 4-in-1 cutting block was placed and then the anterior posterior and chamfer cuts are made. The tibia was then subluxed. The external tibial cutting guide was just to make a perpendicular cut to the long axis of the tibia below the most deficient bone loss side. A lamina concrete finishing machine operator was used and the flexion extension gaps were balanced. All posterior osteophytes removed. All meniscal remnants were resected. The tibia exposed and the trial tibial component size 71 was externally rotated in line with the tibial tubercle and pinned in position. The drill and punch for stem was used. The notch cutting device was centered appropriately and the femoral notch cut was made. The femoral trial was inserted. Trial tibial inserts were placed and size 10 gave balanced ligaments through flexion and extension. Patella tracking was assessed. The patella tracked slightly laterally still so I did a lateral release leaving the synovium intact and the patella tracked centrally.. The trial components were then removed and the orthomix anesthetic cocktail was injected per protocol. The knee was then copiously irrigated with pulsatile lavage antibiotic solution. Final components were then cemented with Simplex cement. Final components were [employer] Vanguard posterior stabilized right 65 femur 71 tibia 10 posterior stabilized poly-and 34 x 8 symmetrical patella. While the cement cured the Betadine soak was used per protocol. After cement cured further pulsatile lavage irrigation performed and 2 Hemovac drains were brought out laterally. The quadriceps tendon and medial retinaculum were closed with figure of 8 #1 Vicryl sutures. The knee was taken through full range of motion and the repair was secure. The knee motion was full extension and flexion 125 degrees. The subcutaneous tissues were closed with 2-0 Vicryl sutures. Skin was closed with gerardo. Sterile dressings were applied. Patient procedure well. GISSELL Chin was my physician assistant basketball coach who assisted in patient positioning prepping and draping,leg positioning ,soft tissue retraction and instrument management and participated in the closing and will participate in postoperative care of the patient. The patient tolerated the procedure well. I attest to the content of the Intraoperative Record and any orders documented therein. Any exceptions are noted below.
[2019-07-23] MEDS ORDERED: VANCOMYCIN HCL 1,250 MG in SODIUM CHLORIDE 0.9% 250 ML IV ONE (20:00)
[2019-07-23] MEDS: PSYLLIUM 58.6% POWDER PACKET PO SCH (20:39)
[2019-07-23] MEDS: SENNA 8.6 MG TAB PO SCH (20:46)
[2019-07-23] MEDS: CEROVITE ADV FORMULA TAB PO SCH (20:46)
[2019-07-23] MEDS: ASPIRIN 81 MG ECTAB PO SCH (20:47)
[2019-07-23] MEDS: ATORVASTATIN 40 MG TAB PO SCH (20:48)
[2019-07-23] MEDS: GABAPENTIN 100 MG CAP PO SCH (20:49)
[2019-07-23] MEDS: DOCUSATE SODIUM 100 MG CAP PO SCH (20:49)
[2019-07-23] MEDS: LATANOPROST 0.005% OP SOLN 2.5 ML BTL OPB SCH (20:50)
[2019-07-23] MEDS ORDERED: LOSARTAN POTASSIUM 50 MG TAB PO SCH (21:00)
[2019-07-23] MEDS ORDERED: CeleBREX 200 MG CAP PO SCH (21:00)
[2019-07-23] MEDS ORDERED: NON-FORMULARY MEDICATION (Magnesium 250 MG) PO SCH (21:00)
[2019-07-23] MEDS: ACETAMINOPHEN 500 MG TAB PO SCH (22:25)
[2019-07-24] MEDS: INSULIN ASPART 100 UNITS/ML 3 ML PEN SC SCH ×6 (00:55→21:39)
[2019-07-24] MEDS: SODIUM CHLORIDE 0.9% 1000ML 1,000 ML IV SCH (01:51)
[2019-07-24] MEDS: ACETAMINOPHEN 500 MG TAB PO SCH ×3 (05:32→21:23)
[2019-07-24 06:04] LABS: Hematocrit (blood only) 31.1 % (37-47); Hemoglobin 9.9 g/dL (12.0-16.0); Mean Corpuscular Hemoglobin 27.9 pg (25-34); Mean Corpuscular Hgb Conc 31.8 g/dL (32-36); Mean Corpuscular Volume 87.6 fL (80-100); Mean Platelet Volume 8.5 fL (7.4-10.4); Platelet Count 204 K/uL (130-400); RDW Standard Deviation 48.5 fL (36.4-46.3); Red Blood Count 3.55 M/uL (4.2-5.4); White Blood Count 10.38 K/uL (4.8-10.8)
[2019-07-24 06:39] LABS: BUN Creatinine Ratio 17.7 (10-20); Calcium 9.4 mg/dl (8.5-10.1); Est GFR (African American) 47.5; Potassium 4.6 mmol/L (3.5-5.1)
[2019-07-24] MEDS: OXYCODONE HCL IR 5 MG TAB (IMMEDIATE RELEASE) PO PRN ×4 (07:38→21:24)
--- NOTE | 2019-07-24 07:39 | Orthopedic Progress Note ---
Date of Service July 24, 2019 Assessment & Plan (1) S/P knee replacement: POD #1, Right TKA PT/ OT DVT proph- ASA D/C plans- Home w HH As per medicine. Subjective POD #1, Doing well. Denies SOB, CP, N/V. Pain controlled well. Physical Exam Physical Exam: Right knee dressings c/d/i, no drainage. Toes/ ankle mobile. NO calf tenderness A&Ox3. Results & Data Vital Signs (Past 12 Hours) Vital Signs Temp Pulse Resp BP Pulse Ox 07/24/19 04:04 36.4 C L 76 16 124/74 94 07/23/19 23:01 36.5 C 86 16 105/62 96
[2019-07-24] MEDS ORDERED: MULTIVITAMIN TAB PO SCH (09:00)
[2019-07-24] MEDS ORDERED: INSULIN GLARGINE SOLOSTAR 100 UNITS/ML 3 ML PEN SC SCH ×2 (09:00→21:00)
[2019-07-24] MEDS: DOCUSATE SODIUM 100 MG CAP PO SCH ×2 (09:17→21:23)
[2019-07-24] MEDS: GABAPENTIN 100 MG CAP PO SCH ×2 (09:18→21:23)
[2019-07-24] MEDS: MULTIVITAMIN TAB PO SCH (09:18)
[2019-07-24] MEDS: CEROVITE ADV FORMULA TAB PO SCH ×2 (09:19→21:23)
[2019-07-24] MEDS: ASPIRIN 81 MG ECTAB PO SCH ×2 (09:19→21:23)
--- NOTE | 2019-07-24 11:44 | Pharmacy Report ---
Pharmacy Glycemic Short Note 2 - Date of Service July 24, 2019 - Glycemic Short BSG Results (Last 24 hours): 07/23/19 07/23/19 07/23/19 13:21 17:26 20:28 Glucose POC Glucose 141 H 279 H 267 H 07/23/19 07/24/19 07/24/19 23:34 03:57 05:29 Glucose 105 H POC Glucose 134 H 106 H 07/24/19 08:21 Glucose POC Glucose 148 H OUTPATIENT ANTIDIABETIC REGIMEN: * Glipizide 10 mg PO QAM , 5 mg PO QPM * Lantus 25 units SQ QAM, 18 units SQ QPM * A1c = 7.5 % on 06/24/19 ASSESSMENT: * Patient is currently receiving an average of 55 units of insulin per day * of note, this amount reflects a partial days worth of insulin * 38 units of basal insulin * 17 units of prandial/correctional insulin * BSGs ranging 126- 297 over the past 24hrs * Risk factors for insulin resistance are decreasing * Pt received a one time radha-op dose of dexamethasone yesterday. No ongoing steroid ordered. * Now POD # 1 s/p R TKA * Anticipating insulin regimen will need decreased for the next 24hrs d/t : * AM Fasting BSG = 148; this is near goal. I will decrease basal insulin dose today and attempt to get patient back on outpatient dose. * Post-prandial BSGs were elevated yesterday. I suspect improvement today since dexamethasone effect has worn off. May need to loosen Novolog CF/CR later today. PLAN FOR INPATIENT GLYCEMIC CONTROL: * Hold outpatient oral diabetes medications * Basal insulin * Lantus 25 units SQ qAM * Lantus per scale SQ qHS: 8 units for BSG < 150, 14 units for BSG 150 or more * Bolus insulin * NovoLog per scale ACHS or Q6hrs while NPO * Goal Range: Low 120 mg/dL - High 150 mg/dL * Correction Factor: 20 mg/dL/unit * Nutritional / Prandial insulin per carb ratio of 1 unit per 7 grams CHO consumed PLAN FOR DISCHARGE: * A1c = 7.5% (06/24/19) * A1c at goal. Resume home regimen on discharge. thank you
[2019-07-24] MEDS: ASCORBIC ACID 500 MG TAB PO SCH (12:47)
--- NOTE | 2019-07-24 14:05 | Hospitalist Progress Note ---
Date of Service July 24, 2019 Assessment & Plan (1) Post-operative state: s/p right TKA 07/23 Pain control, dvt proph per primary (2) Hyperlipidemia: continue atorvastatin (3) Diabetes mellitus: type II consult glycemic pharmacist (4) Diabetic peripheral neuropathy: continue home gabapentin (5) CKD (chronic kidney disease), stage III: avoid nephrotoxins where possible (6) Benign essential hypertension: hold losartan post op day 1 to avoid hypotension and resume day 2 Creat at baseline (7) Acute blood loss anemia: Hgb decreased to 9.9 from baseline of 12 after surgery continue to monitor Medicine will sign off at this time. Please call with any questions or concerns Subjective Ms. Acevedo is feeling well today. No complaints. ROS Constitutional: no chills, aches, sweats or fever Respiratory: no sob,cough, sputum, or wheezing Cardiac: no chest pain, palpitations, edema, orthopnea or lightheadedness GI: no abdominal pain, nausea, vomiting, diarrhea or constipation : no dysuria or hesitancy Extremities: no joint pain or weakness Skin: no rash All other systems reviewed and negative Physical Exam Physical Exam: General: no distress Eyes: normal inspection, PERLL Respiratory: chest non tender, clear to auscultation, normal breath sounds, no respiratory distress, no accessory muscle use Cardiac: regular rate and rhythm, no rub or gallop, no murmur, no edema, no jvd GI/: active bowel sounds, no abd pain or tenderness, soft, non distended Extremities: normal range of motion, normal strength, non tender Neuro/Psych: alert and oriented x 3, normal mood and affect Skin: normal color, dry Results & Data Vital Signs (Past 12 Hours) Vital Signs Temp Pulse Pulse Resp BP Pulse Ox 07/24/19 10:38 92 H 16 128/78 98 07/24/19 07:40 100 07/24/19 07:33 36.8 C 81 14 128/79 92 07/24/19 04:04 36.4 C L 76 16 124/74 94 PG Care Time/CCT Total # of Minutes Spent Total Time Spent with Patient: Total time spent is greater than 50% in coordination of care (as documented) at patient's floor/unit and/or counseling patient:
[2019-07-24] MEDS: SENNA 8.6 MG TAB PO SCH (21:23)
[2019-07-24] MEDS: ATORVASTATIN 40 MG TAB PO SCH (21:23)
[2019-07-24] MEDS: LATANOPROST 0.005% OP SOLN 2.5 ML BTL OPB SCH (21:23)
[2019-07-24] MEDS: PSYLLIUM 58.6% POWDER PACKET PO SCH (21:24)
[2019-07-24] MEDS ORDERED: INSULIN GLARGINE SOLOSTAR 100 UNITS/ML 3 ML PEN SC ONE (21:45)
[2019-07-25] MEDS: OXYCODONE HCL IR 5 MG TAB (IMMEDIATE RELEASE) PO PRN ×2 (06:01→10:00)
[2019-07-25] MEDS: ACETAMINOPHEN 500 MG TAB PO SCH (06:02)
[2019-07-25 06:03] LABS: Hematocrit (blood only) 31.3 % (37-47); Mean Corpuscular Hemoglobin 27.9 pg (25-34); Mean Corpuscular Hgb Conc 31.9 g/dL (32-36); Mean Corpuscular Volume 87.2 fL (80-100); Mean Platelet Volume 8.7 fL (7.4-10.4); Platelet Count 196 K/uL (130-400); RDW Coefficient of Variation 15.3 % (11.5-14.5); RDW Standard Deviation 49.6 fL (36.4-46.3); Red Blood Count 3.59 M/uL (4.2-5.4); White Blood Count 7.15 K/uL (4.8-10.8)
[2019-07-25 06:32] LABS: BUN Creatinine Ratio 19.3 (10-20); Calcium 9.7 mg/dl (8.5-10.1); Creatinine Clr Calc Pharmacy 36.9 ml/min; Est GFR (African American) 44.5; Est GFR (Non-African American) 38.4; Potassium 4.5 mmol/L (3.5-5.1)
--- NOTE | 2019-07-25 08:00 | Orthopedic Progress Note ---
Date of Service July 25, 2019 Assessment & Plan (1) S/P knee replacement: POD #2, Right TKA PT/ OT DVT proph- ASA D/C plans- Home w HH today As per medicine. Subjective POD #2, doing well. Denies SOB, CP, N/V. Pain controlled well. Did well in PT. Physical Exam Physical Exam: Right knee silverlon c/d/i. No drainage. NO calf tenderness. Toes/ ankle mobile. A&Ox3. N/V+. Results & Data Vital Signs (Past 12 Hours) Vital Signs Temp Pulse Resp BP BP Pulse Ox 07/25/19 07:10 36.9 C 83 16 157/87 H 97 07/25/19 00:00 36.9 C 79 16 121/68 96
[2019-07-25] MEDS: GABAPENTIN 100 MG CAP PO SCH (08:39)
[2019-07-25] MEDS: ASCORBIC ACID 500 MG TAB PO SCH (08:39)
[2019-07-25] MEDS: DOCUSATE SODIUM 100 MG CAP PO SCH (08:39)
[2019-07-25] MEDS: CEROVITE ADV FORMULA TAB PO SCH (08:40)
[2019-07-25] MEDS: MULTIVITAMIN TAB PO SCH (08:40)
[2019-07-25] MEDS: ASPIRIN 81 MG ECTAB PO SCH (08:40)
[2019-07-25] MEDS: INSULIN ASPART 100 UNITS/ML 3 ML PEN SC SCH (08:43)
[2019-07-25] MEDS ORDERED: CALCITRIOL 0.25 MCG CAPSULE PO SCH (09:00)
[2019-07-25] MEDS ORDERED: INSULIN GLARGINE SOLOSTAR 100 UNITS/ML 3 ML PEN SC SCH (09:00)
--- NOTE | 2019-08-04 20:39 | Discharge Summary ---
HISTORY OF PRESENT ILLNESS: This is an 78-year-old female patient of Dr. Natarajan's complaining of chronic right knee pain and instability, longstanding, now progressively getting worse. The patient has been diagnosed with end-stage osteoarthritis and she elected to proceed with a right total knee arthroplasty. PAST MEDICAL HISTORY: Hypertension, hypercholesterolemia, peripheral neuropathy, diabetes mellitus, osteoarthritis, acid reflux, hiatal hernia, obesity, kidney stones and a history of unspecified cancer. POSTOPERATIVE COURSE: The patient underwent a right total knee arthroplasty on 07/23/2019. She was followed closely with physical therapy, medical consultation, pain control and DVT prophylaxis in the form of aspirin. The patient did very well postoperatively and was discharged home with home health services on postoperative day #2. PHYSICAL EXAMINATION: Right knee Silverlon dressing was clean, dry and intact. There was no redness or drainage. She had no calf tenderness. Negative Homans sign. Toes and ankle were mobile. Neurologically and neurovascularly, she is intact in her right lower extremity. DIAGNOSES: Status post right total knee arthroplasty, hypertension, hypercholesterolemia, peripheral neuropathy, diabetes mellitus, osteoarthritis, acid reflux, hiatal hernia, obesity, kidney stones and a history of cancer. PLAN: The patient was discharged home with home health services on postoperative day #2. She will continue her preadmission medications with the addition of pain medications and aspirin twice daily for DVT prophylaxis. The patient will follow up with Dr. Natarajan as scheduled as an outpatient.
== END 2019-07-25 10:36 | disposition home health service (06) | DRG 470 ==
LOC: ASU 07:45 → 3E 13:16